=== PATIENT | male | born 1970 | race Caucasian/White ===

== ENCOUNTER 2017-08-31 14:53 | Emergency (ER) | payer OTHER ==
--- NOTE | 2017-08-31 15:58 | ED ---
General Adult HPI - General Chief complaint: Fall Stated complaint: Back Pain Time Seen by Provider: 08/31/17 15:05 Source: patient, EMS, RN notes reviewed Mode of arrival: EMS Limitations: physical limitation - History of Present Illness Initial comments: Patient 47-year-old male presenting to the emergency room today by EMS, the chief complaint of a fall that occurred 2 days ago. He has limited is going down some steps and missed the first step landing on the lower back and right hip area. He states he did not hit his head. Did not lose consciousness. Patient states that he was able to get himself up and negative bed. He states he slept and stated that all day yesterday. He states today tried to get up having increased pain called EMS to be brought here to the hospital. Patient was given fentanyl by EMS is that has made him feel little bit better. He doesn 't that the pain is still worse with certain movements. He denies any neck pain. Denies any abdominal pain, chest pain, numbness or tingling, lumbar radiculopathy, Saddle anesthesia, bowel or bladder incontinence retention. - Related Data Home Medications Medication Instructions Recorded Confirmed Atorvastatin [Lipitor] 40 mg PO HS 03/23/17 03/23/17 Brexpiprazole [Rexulti] 4 mg PO HS 03/23/17 03/23/17 Fluticasone Nasal [place] [Flonase 1 spr EA NOSTRIL DAILY 03/23/17 03/23/17 Nasal [place]] Latanoprost [Xalatan 0.005%] 1 drop BOTH EYES HS 03/23/17 03/23/17 Lisinopril [Zestril] 10 mg PO DAILY 03/23/17 03/23/17 Naproxen 500 mg PO BID PRN 03/23/17 03/23/17 Polyethylene Glycol 3350 [Miralax] 17 gm PO BID PRN 03/23/17 03/23/17 lamoTRIgine [LaMICtal] 200 mg PO DAILY@1800 03/23/17 03/23/17 traZODone HCL 150 mg PO HS PRN 03/23/17 03/23/17 Previous Rx's Medication Instructions Recorded Albuterol Inhaler [Ventolin Hfa 2 puff INHALATION RT-TID PRN #0 12/26/14 Inhaler] puff Cholecalciferol [Vitamin D3] 2,000 unit PO DAILY tab 12/26/14 Cyclobenzaprine [Flexeril] 10 mg PO BID tab 12/26/14 Gabapentin [Neurontin] 300 mg PO TID cap 12/26/14 Montelukast [Singulair] 10 mg PO HS tab 12/26/14 Omeprazole [PriLOSEC] 20 mg PO AC-BRKFST capsule. 12/26/14 Sertraline [Zoloft] 200 mg PO AC-SUPPER tab 12/26/14 Baclofen 10 mg PO TID #20 tab 08/31/17 Dexamethasone 0.75 mg PO DIRECTED #12 tablet 08/31/17 Hydrocodone/Acetaminophen [[place] 1 each PO Q6HR PRN #12 tab 08/31/17 5-325] Ibuprofen [Motrin] 800 mg PO Q6HR #30 tab 08/31/17 Allergies Allergy/AdvReac Type Severity Reaction Status Date / Time No Known Allergies Allergy Verified 03/23/17 14:17 Review of Systems ROS Statement: Those systems with pertinent positive or pertinent negative responses have been documented in the HPI. ROS Other: All systems not noted in ROS Statement are negative. Past Medical History Past Medical History: COPD, GERD/Reflux, Hyperlipidemia, Hypertension Additional Past Medical History / Comment(s): back pain, pinched nerves, + Hepatitis C History of Any Multi-Drug Resistant Organisms: MRSA Date of last positivie culture/infection: 2010 MDRO Source:: Left arm antecube Past Surgical History: No Surgical Hx Reported Past Psychological History: Anxiety, Depression, PTSD Smoking Status: Current every day smoker Past Alcohol Use History: None Reported Past Drug Use History: Heroin General Exam - General Exam Comments Initial Comments: General: The patient is awake and alert, in no distress, and does not appear acutely ill. Eye: Pupils are equal, round and reactive to light, extra-ocular movements are intact. No nystagmus. There is normal conjunctiva bilaterally. No signs of icterus. Ears, nose, mouth and throat: There are moist mucous membranes and no oral lesions. Neck: The neck is supple, there is no tenderness or JVD. Cardiovascular: There is a regular rate and rhythm. No murmur, rub or gallop is appreciated. Respiratory: Lungs are clear to auscultation, respirations are non-labored, breath sounds are equal. No wheezes, stridor, rales, or rhonchi. Gastrointestinal: Abdomen soft on palpation. No rebound tenderness. No guarding. Musculoskeletal: Patient has normal appearance of the thoracic or lumbar spine but no step-off deformity. No tenderness in cervical or thoracic spine. Mildly tender throughout the lumbar spine from L2 to S1. Increased paravertebral tenderness on the right side of the bar spine in these areas. Strength 5/5. Sensation intact. Pulses equal bilaterally 2+. Neurological: A&O x 3. CN II-XII intact, There are no obvious motor or sensory deficits. Coordination appears grossly intact. Speech is normal. Skin: Skin is warm and dry and no rashes or lesions are noted. Psychiatric: Cooperative, appropriate mood & affect, normal judgment. Limitations: physical limitation Course Vital Signs 08/31/17 08/31/17 14:56 16:22 Temperature 99.1 F 98.2 F Pulse Rate 64 64 Respiratory 20 20 Rate Blood Pressure 153/84 159/94 O2 Sat by Pulse 96 96 Oximetry Medical Decision Making - Medical Decision Making 47-year-old male presenting for low back pain for fall occurred 2 days ago. Denies any bowel or bladder incontinence or retention. Denies any saddle anesthesia. x-rays reviewed and are negative for any acute fracture dislocation. Results were discussed with the evaluation and possible MRI symptoms persist. Advised to return to emergency room symptoms increase or worsen.patient. Patient will be given pain medication along with steroids, muscle laxer for his symptoms. He is advised follow-up the family doctor in the next 2 days. Advised to have further Disposition Clinical Impression: Fall, Acute low back pain Disposition: HOME SELF-CARE Condition: Good Instructions: Acute Low Back Pain (ED) Additional Instructions: Please follow family doctor over the next 2 days. Please medications as prescribed and return here to emergency room if any symptoms increase worsen or for any other concerns. Prescriptions: Baclofen 10 mg PO TID #20 tab Dexamethasone 0.75 mg PO DIRECTED #12 tablet Hydrocodone/Acetaminophen [[place] 5-325] 1 each PO Q6HR PRN #12 tab PRN Reason: Pain Ibuprofen [Motrin] 800 mg PO Q6HR #30 tab Is patient prescribed a controlled substance at d/c from ED?: Yes When asked, does pt state using other controlled substances?: Yes If prescribed controlled substance>3 days was MAPS reviewed?: Prescribed <3 Days If opioid is for acute pain is fill amount 7 days or less?: No Referrals: Adrian Clark MD [Primary Care Provider] - 1-2 days Time of Disposition: 16:33
--- NOTE | 2017-08-31 16:20 | XR ---
EXAMINATION TYPE: XR lumbosacral spine min 4V DATE OF EXAM: 08/31/2017 COMPARISON: NONE HISTORY: Low back pain TECHNIQUE: Five-view lumbar spine FINDINGS: There 5 lumbar-type vertebral bodies. Pedicles are intact. Facets are normal. No spondyloly tic defects are evident. Disc height and vertebral body heights are preserved. Alignment is normal. IMPRESSION: 1. Normal 5 view lumbar spine. No acute osseous abnormality is evident.
--- NOTE | 2017-08-31 16:21 | XR ---
EXAMINATION TYPE: XR Hip RT and AP Pelvis DATE OF EXAM: 08/31/2017 COMPARISON: NONE HISTORY: Fall from porch, pain TECHNIQUE: AP pelvis and two-view right hip FINDINGS: No acute fractures are evident. The femoral heads articulate with the acetabulum. Symphysis pubis and sacroiliac joints are normal. Joint spaces are preserved. IMPRESSION: 1. Normal right hip and AP pelvis
[2017-08-31] MEDS ORDERED: MORPHINE SULFATE 4 MG/ML SYRINGE IVP STA (16:31)
[2017-08-31 17:25] VITALS: BP 153/89; PULSE 77; RESP 18; TEMP 98.9
== END 2017-08-31 17:21 | disposition home or self-care (01) ==
LOC: EC 14:53
DX: M54.5 Low back pain (principal); J44.9 Chronic obstructive pulmonary disease, unspecified; K21.9 Gastro-esophageal reflux disease without esophagitis; E78.5 Hyperlipidemia, unspecified; I10 Essential (primary) hypertension; F32.9 Major depressive disorder, single episode, unspecified; F41.9 Anxiety disorder, unspecified; F43.10 Post-traumatic stress disorder, unspecified; F17.200 Nicotine dependence, unspecified, uncomplicated; Z86.14 Personal history of Methicillin resistant Staphylococcus aureus infection; Z86.19 Personal history of other infectious and parasitic diseases; W10.9XXA Fall (on) (from) unspecified stairs and steps, initial encounter; Y92.009 Unspecified place in unspecified non-institutional (private) residence as the place of occurrence of the external cause
CPT/HCPCS: 72110; 73502; 99284; 96374; J2270

== ENCOUNTER 2022-04-24 17:40 | Emergency (ER) | payer MEDICARE, OTHER ==
[2022-04-24 17:47] VITALS: BP 161/92; PULSE 70; RESP 20; TEMP 98.4
[2022-04-24] MEDS ORDERED: SODIUM CHLORIDE 0.9% 1,000 ML IV ONE (18:07)
[2022-04-24] MEDS ORDERED: diphenhydrAMINE 50 MG/ML 1 ML VIAL IVP STA (18:07)
[2022-04-24] MEDS ORDERED: KETOROLAC 15 MG/ML 1 ML VIAL IVP STA (18:07)
[2022-04-24] MEDS ORDERED: PROCHLORPERAZINE INJ 10 MG/2 ML VIAL IVP STA (18:07)
--- NOTE | 2022-04-24 18:16 | ED ---
General Adult HPI - General Chief complaint: Headache Stated complaint: Migraine Time Seen by Provider: 04/24/22 17:58 Source: patient, RN notes reviewed Mode of arrival: ambulatory Limitations: no limitations - History of Present Illness Initial comments: 52 year old male with a past medical history HTN of presents to the emergency department with a chief complaint of headache. He notes that the pain started 3 days ago after he was doing some heavy lifting to move his things. He localizes the pain to the frontal, temporal region of his head. He has been taking tylenol at home without relief. He denies dizziness, lightheadedness, vision changes, blurred vision, vomiting. He does reports feeling nauseas and photophobia. He admits to a history of migraines however does not take anything for them. - Related Data Home Medications Medication Instructions Recorded Confirmed Atorvastatin [Lipitor] 40 mg PO HS 03/23/17 03/23/17 Brexpiprazole [Rexulti] 4 mg PO HS 03/23/17 03/23/17 Fluticasone Nasal [place] [Flonase 1 spr EA NOSTRIL DAILY 03/23/17 03/23/17 Nasal [place]] Latanoprost [Xalatan 0.005%] 1 drop BOTH EYES HS 03/23/17 03/23/17 Naproxen 500 mg PO BID PRN 03/23/17 03/23/17 lamoTRIgine [LaMICtal] 200 mg PO DAILY@1800 03/23/17 03/23/17 lisinopriL [Zestril] 10 mg PO DAILY 03/23/17 03/23/17 polyethylene glycoL 3350 [Miralax] 17 gm PO BID PRN 03/23/17 03/23/17 traZODone HCL 150 mg PO HS PRN 03/23/17 03/23/17 Previous Rx's Medication Instructions Recorded Albuterol Inhaler [Ventolin Hfa 2 puff INHALATION RT-TID PRN #0 12/26/14 Inhaler] puff Cholecalciferol [Vitamin D3 (25 2,000 unit PO DAILY tab 12/26/14 Mcg = 1000 Iu)] Cyclobenzaprine [Flexeril] 10 mg PO BID tab 12/26/14 Gabapentin [Neurontin] 300 mg PO TID cap 12/26/14 Montelukast [Singulair] 10 mg PO HS tab 12/26/14 Omeprazole [PriLOSEC] 20 mg PO AC-BRKFST capsule. 12/26/14 Sertraline [Zoloft] 200 mg PO AC-SUPPER tab 12/26/14 Baclofen 10 mg PO TID #20 tab 08/31/17 Hydrocodone/Acetaminophen [[place] 1 each PO Q6HR PRN #12 tab 08/31/17 5-325] Ibuprofen [Motrin] 800 mg PO Q6HR #30 tab 08/31/17 dexAMETHasone 0.75 mg PO DIRECTED #12 tablet 08/31/17 Allergies Allergy/AdvReac Type Severity Reaction Status Date / Time No Known Allergies Allergy Verified 04/24/22 17:47 Review of Systems ROS Statement: Those systems with pertinent positive or pertinent negative responses have been documented in the HPI. ROS Other: All systems not noted in ROS Statement are negative. Past Medical History Past Medical History: COPD, GERD/Reflux, Hyperlipidemia, Hypertension Additional Past Medical History / Comment(s): back pain, pinched nerves, +Hepatitis C, Migraine History of Any Multi-Drug Resistant Organisms: MRSA Date of last positivie culture/infection: 2010 MDRO Source:: Left arm antecube Past Surgical History: No Surgical Hx Reported Past Psychological History: Anxiety, Depression, PTSD Smoking Status: Current every day smoker Past Alcohol Use History: None Reported Past Drug Use History: Heroin General Exam Limitations: no limitations General appearance: alert, in no apparent distress Head exam: Present: atraumatic, normocephalic, normal inspection Eye exam: Present: normal appearance, PERRL, EOMI. Absent: scleral icterus, conjunctival injection, periorbital swelling ENT exam: Present: normal exam, mucous membranes moist Neck exam: Present: normal inspection. Absent: tenderness, meningismus, lymphadenopathy Respiratory exam: Present: normal lung sounds bilaterally. Absent: respiratory distress, wheezes, rales, rhonchi, stridor Cardiovascular Exam: Present: regular rate, normal rhythm, normal heart sounds. Absent: systolic murmur, diastolic murmur, rubs, gallop, clicks GI/Abdominal exam: Present: soft, normal bowel sounds. Absent: distended, tenderness, guarding, rebound, rigid Extremities exam: Present: normal inspection, full ROM, normal capillary refill. Absent: tenderness, pedal edema, joint swelling, calf tenderness Back exam: Present: normal inspection Neurological exam: Present: alert, oriented X3, CN II-XII intact Psychiatric exam: Present: normal affect, normal mood Skin exam: Present: warm, dry, intact, normal color. Absent: rash Course Vital Signs 04/24/22 17:45 Temperature 98.4 F Pulse Rate 70 Respiratory 20 Rate Blood Pressure 161/92 O2 Sat by Pulse 99 Oximetry - Reevaluation(s) Reevaluation #1: 04/24/22 18:28 Patient reevaluated. 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 Risks of leaving were discussed with the patient. Patient verbalized understanding. Disposition Clinical Impression: Headache Disposition: Left Against Medical Advice Condition: Stable Instructions (If sedation given, give patient instructions): Acute Headache (ED) Additional Instructions: These return to the nearest emergency department if symptoms worsen or persist. Is patient prescribed a controlled substance at d/c from ED?: No Referrals: Ángel Cooley MD [Primary Care Provider] - 1-2 days Time of Disposition: 18:29
== END 2022-04-24 18:42 | disposition left against medical advice (07) ==
LOC: EC 17:40
DX: R51.9 Headache, unspecified (principal); J44.9 Chronic obstructive pulmonary disease, unspecified; K21.9 Gastro-esophageal reflux disease without esophagitis; I10 Essential (primary) hypertension; F41.9 Anxiety disorder, unspecified; F32.A Depression, unspecified; F17.200 Nicotine dependence, unspecified, uncomplicated; F11.90 Opioid use, unspecified, uncomplicated; Z79.899 Other long term (current) drug therapy; Z53.29 Procedure and treatment not carried out because of patient's decision for other reasons
CPT/HCPCS: 99282; 96374; 96375 ×2; J1200; J0780; J1885